=== PATIENT | male | born 1980 | race Caucasian/White ===

== ENCOUNTER 2021-12-10 12:25 | Emergency (ER) | payer BC ==
[~2021-12-10] VITALS: Ht 180.3 cm; Wt 83.9 kg
[2021-12-10] MEDS ORDERED: FENTANYL PF 100MCG/2ML AMPUL ONE ×2 (12:55→15:03)
[2021-12-10] MEDS ORDERED: FENTANYL PF 100MCG/2ML AMPUL IV ONE ×2 (13:00→15:30)
--- NOTE | 2021-12-10 13:10 | NUR ---
IV LEFT HAND FIRST ATTEMPT, ADMIN MD ORDERS FOR PAIN , PAIN LEVEL ON 0-10 10 OR MORE, WILL RE-ASSESS PAIN LEVEL IN 10 MINUTES, PT SITTING UPRIGHT, C/O PAIN IN LEFT SHOULDER CAN NOT SIT BACK ALL THE WAY, SCRAPES ON BI-LATERAL HANDS, FOREHEAD AND LEFT UPPER CHEEK CLEANSED WITH NS, PAT DRIED, APPLIED, ABT OINTMENT.
--- NOTE | 2021-12-10 13:30 | NUR ---
ASSISTED WITH BED SIDE URINAL VOID X1, NORMAL CLEAR YELLOW NO FOUL ODOR NOTED, PAIN IS A LELVEL 5, WILL RECHECK PAIN IN 15 MIN, PT ABLE TO LAY FULLY BACK AT THIS TIME, MINIMUM ASSISTANCE NEEDED TO VOID AND REPOSITION .
[2021-12-10] MEDS ORDERED: MORPHINE SULFATE INJ 2 MG/ML DISP.SYRIN IV ONE (14:00)
[2021-12-10] MEDS ORDERED: MORPHINE SULFATE INJ 2 MG/ML DISP.SYRIN ONE (14:07)
[2021-12-10] MEDS ORDERED: PROPOFOL 20 ML IV ONE ×2 (14:44→15:01)
--- NOTE | 2021-12-10 14:50 | NUR ---
, rn and at bedside for l shoulder reduction. consent signed by the pt.
--- NOTE | 2021-12-10 14:54 | NUR ---
PROPOFOL 50MG IVP GIVEN ORDERED BY .
--- NOTE | 2021-12-10 14:55 | NUR ---
PROPOFOL 50MG IVP GIVEN ORDERED BY .
--- NOTE | 2021-12-10 14:56 | NUR ---
PROPOFOL 25MG IVP GIVEN ORDERED BY .
--- NOTE | 2021-12-10 14:57 | NUR ---
PROPOFOL 25MG IVP GIVEN ORDERED BY .
--- NOTE | 2021-12-10 14:58 | NUR ---
PROPOFOL 25MG IVP GIVEN ORDERED BY .
--- NOTE | 2021-12-10 14:58 | NUR ---
PROPOFOL 25MG IVP GIVEN ORDERED BY .
--- NOTE | 2021-12-10 14:59 | NUR ---
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
[2021-12-10] MEDS ORDERED: PROPOFOL 200 MG/20 ML VIAL IV ONE ×2 (15:00→15:30)
[2021-12-10] MEDS ORDERED: PROPOFOL 0 ML ONE (15:00)
--- NOTE | 2021-12-10 15:02 | NUR ---
PROPOFOL 50MG IVP GIVEN ORDERED BY .
--- NOTE | 2021-12-10 15:05 | NUR ---
FENTANYL 25MCG IVP GIVEN ORDERED BY .
--- NOTE | 2021-12-10 15:06 | NUR ---
PROPOFOL 50MG IVP GIVEN ORDERED BY .
[2021-12-10] MEDS ORDERED: KETAMINE HCL (500MG/10ML) 50 MG/ML VIAL ONE (15:07)
--- NOTE | 2021-12-10 15:09 | NUR ---
KETAMINE 100MG IVP GIVEN ORDERED BY .
--- NOTE | 2021-12-10 15:11 | NUR ---
SHOULDER REDUCTION DONE BY .
--- NOTE | 2021-12-10 15:25 | NUR ---
PROPOFEL GIVEN IN INCREMENTS PER MD ORDERS, MONITORED CLOSELY DURING PROCEDURE, EFFECTIVE, L SHOULDER BACK IN PLACE , PT EASY TO AROUSE AT THIS TIME.
[2021-12-10] MEDS ORDERED: HYDR-4275 PO (15:29)
[2021-12-10] MEDS ORDERED: KETAMINE HCL (500MG/10ML) 50 MG/ML VIAL IV ONE (15:30)
--- NOTE | 2021-12-10 15:32 | NUR ---
DR MEYERS DOES NOT WANT PT TO BE DISCHARGED UNTIL 1630, BROTHER NOTIFIED TO PICK HIM UP AT 1630
[2021-12-10 16:50] VITALS: BP 125/81
--- NOTE | 2021-12-10 16:50 | NUR ---
IV removed. Catheter intact and site benign. Pressure and 4x4 applied to site. No bleeding noted. Patient discharged to home in stable condition. Written and verbal after care instructions given. Patient verbalizes understanding of instruction.
== END 2021-12-10 16:50 | disposition home or self-care (01) ==
LOC: ER 12:31
DX: S43.085A Other dislocation of left shoulder joint, initial encounter (principal); S00.91XA Abrasion of unspecified part of head, initial encounter; F41.9 Anxiety disorder, unspecified; F32.9 Major depressive disorder, single episode, unspecified; W05.1XXA Fall from non-moving nonmotorized scooter, initial encounter; Y93.89 Activity, other specified; Y92.89 Other specified places as the place of occurrence of the external cause; Y99.8 Other external cause status
CPT/HCPCS: 23650; 73030 ×2; 73200; 96374; 99152; 99285; J2270; J2704 ×2; J3010 ×2; J3490; G0500